=== PATIENT | female | born 1975 | race Caucasian/White ===

== ENCOUNTER 2017-06-06 17:12 | Emergency (ER) | payer MEDICAID ==
[~2017-06-06] VITALS: Ht 167.6 cm; Wt 111.6 kg
[2017-06-06 17:26] VITALS: Ht 167.6 cm; Wt 111.6 kg
[2017-06-06 19:29] VITALS: BP 132/91
== END 2017-06-06 19:29 | disposition home or self-care (01) ==
LOC: ED 17:12
DX: S96.911A Strain of unspecified muscle and tendon at ankle and foot level, right foot, initial encounter (principal); X58.XXXA Exposure to other specified factors, initial encounter; Y93.89 Activity, other specified; Y92.89 Other specified places as the place of occurrence of the external cause; Y99.8 Other external cause status